=== PATIENT | female | born 1990 | race Caucasian/White ===

== ENCOUNTER 2021-01-18 13:30 | Outpatient (RCR) | payer BC, SELFPAY ==
--- NOTE | 2020-12-12 12:01 | PTOPEVAL ---
INITIAL PHYSICAL THERAPY EVALUATION and PLAN OF CARE Thank you for referring Anne-Marie Winn to [facility].? Anne-Marie is scheduled to be seen for physical therapy? 2x/week for 4 weeks. Please review, sign, date and return this plan of care SAVAGE. I agree with and certify that the following plan of care is medically necessary. Referring Physician Date Admitting Provider: Attending Provider: Chrissy Askew DO Referring Provider: *PT Outpatient Evaluation Start: 12/12/20 10:17 Freq: Status: Active Protocol: Document 12/12/20 10:15 ANDIE (Rec: 12/12/20 12:01 ANDIE [id number]) Therapy Assessment Status Assessment Status Assessment Status Evaluation Outpatient Past Medical History Past Medical History Source of Past Medical History Patient Musculoskeletal History Hx Other Musculoskeletal Disorders Yes: hip pain, R wrist pain,L hallux-cyst,neck/shoulder pain Evaluation Information Problem Diagnosis cervicalgia, migraine - headaches Onset worsening last 2 months Subjective Information Began to have headaches on a Query Text:As Reported By Patient/ regular basis - runs from back Family of head - up back of head - and to top of head - has a headache 5-6 days/wk Sometimes will wake up with one, sometimes at end of day will feel it At times headache will make her nauseous, will vomit Doesn't like having a headache - will take ibuprofen. Neck - tension, pain - will often pull it with motion. Usually feels better with boxing - hasn't been there for awhile due to COVID at the facility Will go ~3 days/wk - but was worse when did a lot of repetitive single work with 1 arm rather than reciprocal activities with arms. 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
--- NOTE | 2020-12-31 15:23 | PTOPEVAL ---
PHYSICAL THERAPY RE-EVALUATION and UPDATED PLAN OF CARE Thank you for referring Anne-Marie Winn to [facility].? Anne-Marie has made progress towards goals set - but she has not fully met the goals. Further skilled PT is recommended 2x/week for 4 weeks. Please review, sign, date and return this plan of care SAVAGE. I agree with and certify that the following plan of care is medically necessary. Referring Physician Date Admitting Provider: Attending Provider: Chrissy Askew DO Referring Provider: Therapy Assessment Status Assessment Status Assessment Status Re-evaluation Evaluation Information Problem Diagnosis cervicalgia, migraine - headaches Subjective Information Anne-Marie stated that last week Query Text:As Reported By Patient/ was awful - increase with Family headache after treatment - headache present rest the week. R sided neck pain present as well - used heat to help with the discomfort. Over the weekend - did okay - able to increase activity level without increase. Headaches 3-4/week now - no headache today. Doing cervical/scapular stretching at home - varies intensity of stretching depending on how she feels. did notice bump at back of neck is less now. Pain Assessment Timing of Pain Assessment Timing of Pain Assessment Assessment Pain Scale Pain Scale Used Numeric (1 - 10) Self Report Pain Assessment Head Reported Pain Level 0 Lowest Pain Intensity 0 Greatest Pain Intensity 8 Neck Reported Pain Level 3 Lowest Pain Intensity 3 Greatest Pain Intensity 9 Cervical and Lumbar ROM Cervical ROM Cervical Flexion (0-60) 35 Query Text:Active in Degrees Cervical Extension (0-70) 40 Query Text:Active in Degrees Cervical Lateral Flexion Right (0-50) 45 Query Text:Active in Degrees Cervical Lateral Flexion Left (0-50) 50 Query Text:Active in Degrees Cervical Rotation Right (0-90) 65 Query Text:Active in Degrees Cervical Rotation Left (0-90) 68 Query Text:Active in Degrees Cervical ROM Comments with cervical extension - decreased lower cervical motion, all motion in mid and upper cervical spine initially - with cueing able to
--- NOTE | 2021-01-04 13:12 | PCPTNOTE ---
Patient did not show for appointment this date. Patient was called and states she forgot her appointment today.
--- NOTE | 2021-01-07 12:22 | PCPTNOTE ---
Today's appointment was cancelled due to lack of insurance authorization for today's visit.
--- NOTE | 2021-01-18 14:48 | PTOPEVAL ---
PHYSICAL THERAPY DISCHARGE SUMMARY Thank you for referring Anne-Marie Winn to [facility].? AnneM-arie has been seen x 8 visits in PT. Good progress has been made towards goals set - more so for her headaches than her neck pain. She is independent and compliant with her HEP which she is to continue to perform in addition to postural and body former education that she has received. Her insurance company has only approved 8 visits for PT. I agree with Anne-Marie's discharge from PT. Referring Physician Date Admitting Provider: Attending Provider: Chrissy Askew DO Referring Provider: Therapy Assessment Status Assessment Status Assessment Status Discharge Evaluation Information Problem Diagnosis cervicalgia, migraine - headaches Subjective Information Anne-Marie reports still having Query Text:As Reported By Patient/ increased upper trapezius pain Family and tightness. Headaches are decreasing - only 3 since last visit ~ 9 days ago. Stretching does help the headaches - not the upper trapezius pain as much - can relieve the headache. Only one of the headaches was severe. Sleeping - variable - some nights wound up - other nights sleep well - 70% good, 30% not so good. Using towel roll in neck with sleeping - helping. Pain Assessment Self Report Pain Assessment Head Reported Pain Level 0 Lowest Pain Intensity 0 Greatest Pain Intensity 6 Neck Reported Pain Level 3 Pain Description Tightness Lowest Pain Intensity 3 Greatest Pain Intensity 8 Cervical and Lumbar ROM Cervical ROM Cervical Flexion (0-60) 45 Query Text:Active in Degrees Cervical Extension (0-70) 45 Query Text:Active in Degrees Cervical Lateral Flexion Right (0-50) 45 Query Text:Active in Degrees Cervical Lateral Flexion Left (0-50) 50 Query Text:Active in Degrees Cervical Rotation Right (0-90) 70 Query Text:Active in Degrees Cervical Rotation Left (0-90) 72 Query Text:Active in Degrees Cervical ROM Comments with cervical extension - still having difficulty incorporating lower cervical segments - can do so with tactile cueing Cervical and Lumbar Muscle Testing Cervical Muscle Testing Deep Cervical Flexion 1:14.37 Palpation Assessment Palpation Palpation
== END 2021-01-21 12:55 | disposition home or self-care (01) ==
LOC: ANHHIPT 13:30
PROVIDERS: PCP Family Medicine; Visit Provider Family Medicine
DX: M54.2 Cervicalgia (principal); G43.909 Migraine, unspecified, not intractable, without status migrainosus
CPT/HCPCS: 97014; 97110; 97140; 97162; G0283